=== PATIENT | male | born 1985 | race Caucasian/White ===

== ENCOUNTER 2021-05-17 12:29 | Emergency (ER) | payer OTHER ==
[2021-05-17 12:46] VITALS: BP 136/89; PULSE 94; TEMP 98.5; BMI 28.7
[2021-05-17] MEDS ORDERED: IBUPROFEN 600 MG TABLET (FP) PO ONE (14:39)
[2021-05-18 10:07] LABS: SARS-CoV-2 NAA Detected (Not Detected)
== END 2021-05-17 15:40 | disposition home or self-care (01) ==
LOC: JER 12:29
DX: J06.9 Acute upper respiratory infection, unspecified (principal); S20.219A Contusion of unspecified front wall of thorax, initial encounter; V18.0XXA Pedal cycle driver injured in noncollision transport accident in nontraffic accident, initial encounter
CPT/HCPCS: 71046-TC-FY; 87804; 87807; 99284-25; C9803; U0003; U0005